=== PATIENT | male | born 1950 | race Caucasian/White ===

== ENCOUNTER 2018-10-01 16:32 | Emergency (ER) | payer OTHER ==
[2018-10-01 16:38] VITALS: BP 170/97
--- NOTE | 2018-10-01 18:03 | ED Physician Documentation ---
PD HPI UPPER EXT INJURY - Stated complaint Stated Complaint: RT WRIST INJ - Chief complaint Chief Complaint: Trauma Ext - History obtained from History obtained from: Patient - History of Present Illness Location: Right, Wrist Type of injury: Fall Where injury occurred: Home Timing - onset: Today Timing - duration: Minutes Timing - details: Abrupt onset, Still present Improved by: Rest, Immobilization Worsened by: Moving, Palpating Associated symptoms: Swelling. No: Weakness, Numbness Contributing factors: Anticoagulated Similar symptoms before: Has not had sx before Recently seen: Not recently seen - Additonal information Additional information: 67 y/o male fell backward onto a outstretched right hand injuring his right wrist. Review of Systems Constitutional: denies: Fever Eyes: denies: Decreased vision Ears: denies: Ear pain Nose: denies: Congestion Throat: denies: Sore throat Cardiac: denies: Chest pain / pressure Respiratory: denies: Dyspnea, Cough GI: denies: Abdominal Pain, Nausea, Vomiting : denies: Dysuria, Frequency Skin: denies: Rash Musculoskeletal: reports: Extremity pain, Joint pain, Joint swelling. denies: Neck pain, Back pain Neurologic: denies: Generalized weakness, Focal weakness, Numbness PD PAST MEDICAL HISTORY - Allergies Allergies/Adverse Reactions: Allergies Allergy/AdvReac Type Severity Reaction Status Date / Time No Known Drug Allergies Allergy Verified 10/01/18 16:34 - Social History Does the pt smoke?: No Smoking Status: Never smoker PD ED PE NORMAL - Vitals Vital signs reviewed: Yes (hypertensive ) - General General: Alert and oriented X 3, No acute distress, Well developed/nourished - HEENT HEENT: Atraumatic, PERRL - Neck Neck: Supple, no meningeal sign - Respiratory Respiratory: No respiratory distress - Derm Derm: Normal color, Warm and dry, No rash - Extremities Extremities: Other (There is swelling and point tenderness to the right wrist over the dorsal aspect of the distal radius) - Neuro Neuro: Alert and oriented X 3, expressive therapist 2-12 intact, No motor deficit, No sensory deficit, Normal speech Eye Opening: Spontaneous Motor: Obeys Commands Verbal: Oriented GCS Score: 15 - Psych Psych: Normal mood, Normal affect Results - Vitals Vitals: Vital Signs - 24 hr 10/01/18 16:35 Temperature 36.5 C Heart Rate 79 Respiratory 16 Rate Blood Pressure 170/97 H O2 Saturation 98 Oxygen O2 Source Room air - Rads (name of study) right wrist Radiology: Prelim report reviewed (Pression: An acute comminuted mildly displaced intra-articular right distal radial fracture with no significant impaction or angulation. An acute fracture of the styloid process of the right ulna. Well aligned radiocarpal joint.), EMP read indepedently, See rad report Procedures - Splint (location) right wrist Splint applied by: Tech Type of splint: Fiberglass, Volar cock up Other: Patient tolerated well, No complications, Neurovascular intact, Good alignment PD MEDICAL DECISION MAKING - ED course Complexity details: considered differential, d/w patient ED course: 67-year-old male with a FOOSH has a minimally displaced intra-articular fracture of the distal radius with some dorsal displacement of 1 to 2 mm.He is placed into a volar splint and will follow-up with orthopedics. Departure - Departure Disposition: 01 Home, Self Care Clinical Impression: Wrist fracture, right Qualifiers: Encounter type: initial encounter Fracture type: closed Qualified Code(s): S62.101A - Fracture of unspecified carpal bone, right wrist, initial encounter for closed fracture Condition: Stable Instructions: ED Fx Wrist General Follow-Up: [facility] [Provider Group] Discharge Date/Time: 10/01/18 18:18
--- NOTE | 2018-10-01 18:04 | XRAY Report ---
Reason: FOOSH swelling over distal radius Procedure Date: 10/01/2018 Accession Number: [id number] / [id number] Procedure: XR - Wrist 4 View RT CPT Code: FULL RESULT: EXAM: RIGHT WRIST RADIOGRAPHY EXAM DATE: 10/01/2018 05:51 PM. CLINICAL HISTORY: FOOSH swelling over distal radius. COMPARISON: None. TECHNIQUE: 3 views. FINDINGS: Bones: An acute comminuted mildly displaced articular right distal radial fracture with no significant impaction or angulation. An acute fracture of the styloid process of right ulna. Joints: Normal. No subluxations. Soft Tissues: Moderate soft tissue swelling is seen at the dorsum of the right wrist. IMPRESSION: An acute comminuted mildly displaced intra-articular right distal radial fracture with no significant impaction or angulation. An acute fracture of the styloid process of right ulna. Well aligned radiocarpal joint. RADIA
== END 2018-10-01 18:18 | disposition home or self-care (01) ==
LOC: ED 16:32
DX: S52.611A Displaced fracture of right ulna styloid process, initial encounter for closed fracture (principal); W01.0XXA Fall on same level from slipping, tripping and stumbling without subsequent striking against object, initial encounter; Y93.01 Activity, walking, marching and hiking; Y92.009 Unspecified place in unspecified non-institutional (private) residence as the place of occurrence of the external cause
CPT/HCPCS: 29125; 99282; 99283

== ENCOUNTER 2021-12-13 12:16 | Emergency (ER) | payer MEDICARE, OTHER ==
--- NOTE | 2021-12-13 13:10 | ED Physician Documentation ---
PD HPI HEENT - Stated complaint Stated Complaint: TROUBLE SWALLOWING - Chief complaint Chief Complaint: Resp - History obtained from History obtained from: Patient - History of Present Illness Timing - onset: Last night (Onset at dinnertime of inability to swallow with discomfort at the distal esophagus area. Was eating steak and vegetables at the time. Has had similar episodes lasting just a few minutes to an hour in the past. None prolonged like this.) Timing - duration: Hours (18) Timing - details: Abrupt onset, Still present (He states he can swallow liquids mechanically and the throat but that it feels like it gets stuck in the esophagus and he has to spit back up. He is spitting saliva periodically as well.) Location: Throat Associated symptoms: No: Fever, Congestion, Rhinorrhea Similar symptoms before: No diagnosis (has had feeling of food getting stuck wh en eating but has resolved within few minutes up to 1/2 hour in the past. Not had it this long nor needed to seek care in ER previously.) Recently seen: Not recently seen Review of Systems Constitutional: denies: Fever, Chills Nose: denies: Rhinorrhea / runny nose, Congestion Throat: denies: Sore throat Cardiac: denies: Chest pain / pressure Respiratory: denies: Cough GI: reports: Nausea, Vomiting (just since dinner last night). denies: Abdominal Pain, Diarrhea Skin: denies: Rash, Lesions Neurologic: denies: Generalized weakness, Near syncope PD PAST MEDICAL HISTORY - Past Medical History Cardiovascular: Coronary artery disease (with prior stents) Respiratory: None Neuro: None GI: GERD (but has had less symptoms the past 6 months. ) - Present Medications Home Medications: Ambulatory Orders Medication Instructions Recorded Confirmed Atorvastatin Calcium 40 mg PO HS 30 Days #30 tab 12/13/21 Clopidogrel [Plavix] 75 mg PO DAILY 30 Days #30 tab 12/13/21 Losartan/Hydrochlorothiazide 1 each PO DAILY 30 Days #30 tab 12/13/21 [Losartan-Hctz 100-12.5 mg Tab] Metoprolol Succinate 100 mg PO DAILY 30 Days #30 tab 12/13/21 Pantoprazole [Protonix] 40 mg PO DAILY 30 Days #30 tablet 12/13/21 - Allergies Allergies/Adverse Reactions: Allergies Allergy/AdvReac Type Severity Reaction Status Date / Time No Known Drug Allergies Allergy Verified 12/13/21 12:33 - Living Situation Living Arrangement: reports: At home - Social History Does the pt smoke?: No Smoking Status: Never smoker Does the pt have substance abuse?: No - Family History Family history: reports: CAD PD ED PE NORMAL - Vitals Vital signs reviewed: Yes - General General: Alert and oriented X 3, No acute distress, Well developed/nourished - HEENT HEENT: Pharynx benign - Neck Neck: Supple, no meningeal sign, No adenopathy - Cardiac Cardiac: RRR, No murmur - Respiratory Respiratory: Clear bilaterally - Derm Derm: Normal color, Warm and dry, No rash - Extremities Extremities: Normal ROM s pain, No edema, No calf tenderness / cord - Neuro Neuro: Alert and oriented X 3, No motor deficit, Normal speech Results - Vitals Vitals: Vital Signs - 24 hr 12/13/21 12/13/21 12/13/21 12:26 13:53 14:58 Temperature 36.6 C Heart Rate 96 96 85 Respiratory 14 24 21 Rate Blood Pressure 181/99 H 172/109 H 161/108 H O2 Saturation 97 95 98 Oxygen O2 Source Room air - Labs Labs: Laboratory Tests 12/13/21 12/13/21 12/13/21 13:30 13:30 13:35 WBC 8.4 RBC 4.57 L Hgb 14.4 Hct 42.6 MCV 93.2 MCH 31.5 H MCHC 33.8 RDW 13.2 Plt Count 223 MPV 10.9 Neut # (Auto) 5.5 Lymph # (Auto) 1.9 Rock # (Auto) 0.8 Eos # (Auto) 0.2 Baso # (Auto) 0.1 Absolute Nucleated RBC 0.00 Nucleated RBC % 0.0 Sodium 139 Potassium 3.8 Chloride 102 Carbon Dioxide 28 Anion Gap 9.0 BUN 26 H Creatinine 0.7 Estimated GFR (MDRD) 112 Glucose 160 H Calcium 9.6 Magnesium 2.2 Total Bilirubin 1.1 H AST 26 ALT 29 Alkaline Phosphatase 82 Total Protein 8.0 Albumin 4.8 Globulin 3.2 Albumin/Globulin Ratio 1.5 Lipase 26 SARS-CoV-2 (PCR) NOT DETECTED PD MEDICAL DECISION MAKING - ED course Complexity details: re-evaluated patient (he was able to swallow some cola after meds iv. He then was able to drink full small can of cola. Obstruction appears to have resolved. ), considered differential (esophageal food impaction from steak. Can try meds to see if spasm component. ), d/w patient Departure - Departure Disposition: 01 Home, Self Care Clinical Impression: Food impaction of esophagus Qualifiers: Encounter type: initial encounter Qualified Code(s): T18.128A - Food in esophagus causing other injury, initial encounter Condition: Stable Record reviewed to determine appropriate education?: Yes Instructions: ED Foreign Body Esophageal Rslv Follow-Up: [facility] [Provider Group] [facility] [place] [Provider Group] Prescriptions: Atorvastatin Calcium 40 mg PO HS 30 Days #30 tab Losartan/Hydrochlorothiazide [Losartan-Hctz 100-12.5 mg Tab] 1 each PO DAILY 30 Days #30 tab Metoprolol Succinate 100 mg PO DAILY 30 Days #30 tab Clopidogrel [Plavix] 75 mg PO DAILY 30 Days #30 tab Pantoprazole [Protonix] 40 mg PO DAILY 30 Days #30 tablet Comments: I am glad you are food impaction has resolved without having to have a scope. No doubt the esophagus is going to be a bit irritated from this and commonly will have a little bit of irritation preceding as a cause for the spasm. I would suggest an acid reducing medicine such as pantoprazole daily for 2 to 3 weeks at least. Soft food only and lots of fluids for hydration today into tomorrow. Progress diet as tolerated after that. I wrote prescriptions for your other medicines to be back on track with those. I provided the name of a couple of the clinics on the [place]. In particular at the [facility] also has a clinic in [place] ([facility] [place] with mostly the same providers. When you call you can ask if they have openings at the [facility] as I would be more convenient for you. I transmitted your prescriptions to [facility] pharmacy. Return to the ER as needed. Discharge Date/Time: 12/13/21 14:56
[2021-12-13 13:40] LABS: BASOPHILS # (AUTO) 0.1 10^3/uL (0.0-0.1); BASOPHILS % (AUTO) 0.6 %; EOSINOPHILS # (AUTO) 0.2 10^3/uL (0.0-0.7); HCT - HEMATOCRIT 42.6 % (42.0-52.0); HGB - HEMOGLOBIN 14.4 g/dL (14.0-18.0); LYMPHOCYTES # (AUTO) 1.9 10^3/uL (1.5-3.5); LYMPHOCYTES % (AUTO) 22.2 %; MEAN CORPUSCULAR HEMOGLOBIN 31.5 pg (27.0-31.0); MEAN CORPUSCULAR HGB CONC 33.8 g/dL (32.0-36.0); MEAN CORPUSCULAR VOLUME 93.2 fL (80.0-94.0); MEAN PLATELET VOLUME 10.9 fL (7.4-11.4); MONOCYTES # (AUTO) 0.8 10^3/uL (0.0-1.0); MONOCYTES % (AUTO) 9.8 %; NEUTROPHILS # (AUTO) 5.5 10^3/uL (1.5-6.6); PLT - PLATELET COUNT 223 10^3/uL (130-450); RED BLOOD COUNT 4.57 10^6/uL (4.70-6.10); RED CELL DISTRIBUTION WIDTH 13.2 % (12.0-15.0); WHITE BLOOD COUNT 8.4 x10^3/uL (4.8-10.8)
[2021-12-13] MEDS: GLUCAGON 1 MG/ML VIAL IVP STA (13:51)
[2021-12-13] MEDS: SODIUM CHLORIDE 0.9% 1,000 ML IV STA (13:51)
[2021-12-13 13:53] LABS: ALBUMIN 4.8 g/dL (3.2-5.5); ALBUMIN/GLOBULIN RATIO 1.5 (1.0-2.2); BILIRUBIN,TOTAL 1.1 mg/dL (0.2-1.0); CALCIUM 9.6 mg/dL (8.5-10.3); CREATININE 0.7 mg/dL (0.6-1.2); MAGNESIUM 2.2 mg/dL (1.7-2.8); POTASSIUM 3.8 mmol/L (3.5-5.0)
[2021-12-13 14:59] VITALS: BP 161/108
== END 2021-12-13 14:56 | disposition home or self-care (01) ==
LOC: ED 12:16
DX: T18.128A Food in esophagus causing other injury, initial encounter (principal)
CPT/HCPCS: 36415; 80053; 83690; 83735; 85025; 96374; 99283